=== PATIENT | male | born 1995 | race Asian ===

== ENCOUNTER 2018-01-22 19:50 | Inpatient (IN) | payer OTHER, BC ==
[2018-01-22] MEDS ORDERED: Sodium Chloride 0.9% 1,000 ML IV ONE ×3 (20:15→22:20)
[2018-01-22] MEDS ORDERED: Sodium Chloride 0.9% 2,000 ML ONE (20:17)
--- NOTE | 2018-01-22 20:22 | EDM.PDOC ---
ED HPI GENERAL MEDICAL PROBLEM - General Chief Complaint: Exposure to Heat or Cold Stated Complaint: POSS HEAT EXAUSTION Time Seen by Provider: 01/22/18 19:52 Source of Information: Reports: Patient, Other (Friends and coworkers) History Limitations: Reports: Other (Clinical condition) - History of Present Illness INITIAL COMMENTS - FREE TEXT/NARRATIVE: Patient is a 22-year-old male who was brought into emergency department by friends due to a possible heat exhaustion. The friends and coworkers state that the patient has spent the last 2 or 3 days working 17-20 hours shifts in the heat. 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 He's been drinking some fluids only T though not water at all. Friends and coworkers note that he has been a bit listless on today. He' s been acting confused. He is complaining of headache and he is having trouble with his activities of daily living. He is not going to the bathroom properly and he is much delayed in his responses and they had to carry him out of the restaurant today. He did not pass out however he was extremely weak and unable to bear his own weight. Patient is awake and alert but most of the history comes from the coworkers and friends that he lives with. Patient is able to answer some questions. He says yes to headache dizziness weakness lightheadedness he denies any nausea vomiting chest pain shortness of breath abdominal pain. No new rashes itches or joint pains. Patient denies having a fever. Onset: Gradual Duration: Day(s): (2-3 days) Location: Reports: Other (Generalized, see history of present illness) Quality: Reports: Ache, Dull, Throbbing Severity: Severe Improves with: Reports: None Worsens with: Reports: None Context: Reports: Other (CHPI) Associated Symptoms: Reports: Confusion, Diaphoresis (Friends state he has been sweating a lot however he stopped sweating around noon today), Fever/Chills ( Chills but no fever), Malaise, Weakness. Denies: Nausea/Vomiting, Seizure, Shortness of Breath Headache Pain Score (Numeric/FACES): 8 - Related Data Allergies Allergy/AdvReac Type Severity Reaction Status Date / Time No Known Allergies Allergy Verified 01/22/18 20:06 Home Meds: Home Meds . [No Known Home Meds] 01/22/18 [History] ED ROS GENERAL - Review of Systems Review Of Systems: See Below Constitutional: Reports: Chills, Malaise, Weakness, Fatigue, Diaphoresis. Denies: Fever HEENT: Reports: No Symptoms Respiratory: Reports: No Symptoms Cardiovascular: Reports: Other (Patient reports feeling some shortness of breath ) Endocrine: Reports: Fatigue GI/Abdominal: Reports: No Symptoms. Denies: Abdominal Pain, Black Stool, Diarrhea, Difficulty Swallowing, Nausea, Stool Incontinence, Vomiting : Reports: Other (Decreased urination). Denies: Frequency, Urgency Musculoskeletal: Reports: Muscle Stiffness Skin: Reports: No Symptoms Neurological: Reports: Confusion, Dizziness, Headache, Trouble Speaking, Difficulty Walking, Weakness, Change in Speech Psychiatric: Reports: No Symptoms Hematologic/Lymphatic: Reports: No Symptoms Immunologic: Reports: No Symptoms ED EXAM, GENERAL - Physical Exam Exam: See Below Exam Limited By: No Limitations General Appearance: WD/WN, Lethargic, Mild Distress Eye Exam: Bilateral Eye: EOMI, PERRL Ears: Normal External Exam, Hearing Grossly Normal Ear Exam: Bilateral Ear: Auricle Normal Nose: Normal Inspection, Normal Mucosa, No Blood Throat/Mouth: Normal Inspection, Normal Lips, Normal Teeth, Normal Gums, Normal Oropharynx, Normal Voice, No Airway Compromise Head: Atraumatic, Normocephalic Neck: Normal Inspection, Supple, Non-Tender, Full Range of Motion Respiratory/Chest: No Respiratory Distress, Lungs Clear, Normal Breath Sounds, No Accessory Muscle Use, Chest Non-Tender Cardiovascular: Normal Peripheral Pulses, No Edema, No Gallop, No JVD, No Murmur , No Rub, Tachycardia Peripheral Pulses: 2+: Dorsalis Pedis (L), Dorsalis Pedis (R) GI/Abdominal: Normal Bowel Sounds, Soft, Non-Tender, No Organomegaly, No Distention, No Abnormal Bruit, No Mass Back Exam: Normal Inspection, Other (Weakness) Extremities: Normal Inspection, Normal Range of Motion, Non-Tender, Normal Capillary Refill, No Pedal Edema Neurological: Alert, Oriented, CN II-XII Intact, Confused, Slow to Respond Psychiatric: Normal Affect, Normal Mood Skin Exam: Warm, Dry, Intact, Normal Color, No Rash Course - Vital Signs Last Recorded V/S: Last Vital Signs Temp 98.8 F 01/23/18 18:56 Pulse 92 01/23/18 16:01 Resp 18 01/23/18 16:01 BP 130/73 01/23/18 16:01 Pulse Ox 100 01/23/18 16:01 - Orders/Labs/Meds Orders: Active Orders 24 hr Category Date Time Status Vital Signs [RC] Q4HR Care 01/23/18 01:38 Active Chest 2V [CR] Routine Exams 01/24/18 09:00 Ordered CULTURE BLOOD [BC] Stat Lab 01/23/18 03:14 Received CULTURE BLOOD [BC] Stat Lab 01/23/18 03:23 Received DRUG SCREEN, URINE [URCHEM] Stat Lab 01/22/18 21:24 Ordered MISC TEST Routine Lab 01/23/18 04:16 Ordered STREP PNEUMONIAE ANTIGEN [MREF] Routine Lab 01/23/18 07:56 Ordered UA W/MICROSCOPIC [URIN] Routine Lab 01/23/18 07:56 Ordered UA W/MICROSCOPIC [URIN] Stat Lab 01/22/18 21:24 Ordered Acetaminophen [Tylenol] Med 01/23/18 02:54 Active 650 mg PO Q4H PRN Azithromycin [Zithromax] 500 mg Med 01/23/18 04:30 Active Sodium Chloride 0.9% [Normal Saline] 250 ml IV Q24H Ondansetron [Zofran] Med 01/23/18 02:15 Active 4 mg IVPUSH Q8H PRN Sodium Chloride 0.9% [Normal Saline] 1,000 ml Med 01/23/18 09:00 Active IV ASDIRECTED cefTRIAXone [Rocephin] 2 gm Med 01/23/18 04:00 Active Sodium Chloride 0.9% [Normal Saline] 100 ml IV Q24H Blood Culture x2 Reflex Set [OM.PC] Stat Oth 01/23/18 02:58 Ordered Resuscitation Status Routine Resus Stat 01/23/18 02:49 Ordered Medication Orders Acetaminophen (Tylenol) 650 mg PO Q4H PRN PRN Reason: Pain/Fever Last Admin: 01/23/18 16:05 Dose: 650 mg Admin: 01/23/18 03:02 Dose: 650 mg Ceftriaxone Sodium 2 gm/ (Sodium Chloride) 100 mls @ 100 mls/hr IV Q24H RUBEN Last Admin: 01/23/18 04:44 Dose: 100 mls/hr Azithromycin 500 mg/ Sodium (Chloride) 250 mls @ 250 mls/hr IV Q24H [facility] Last Admin: 01/23/18 05:45 Dose: 250 mls/hr Sodium Chloride (Normal Saline) 1,000 mls @ 200 mls/hr IV ASDIRECTED [facility] Last Admin: 01/23/18 16:06 Dose: 200 mls/hr Infusion: 01/23/18 14:45 Dose: 200 mls/hr Admin: 01/23/18 09:45 Dose: 200 mls/hr Ondansetron HCl (Zofran) 4 mg IVPUSH Q8H PRN PRN Reason: Nausea/Vomiting Labs: Laboratory Tests 01/22/18 01/22/18 01/22/18 Range/Units 20:16 20:16 20:16 WBC 5.80 (4.23-9.07) K/mm3 RBC 5.18 (4.63-6.08) M/mm3 Hgb 15.3 (13.7-17.5) gm/L Hct 44.8 (40.1-51.0) % MCV 86.5 (79.0-92.2) fl MCH 29.5 (25.7-32.2) pg MCHC 34.2 (32.2-35.5) g/dl RDW Std Deviation 41.2 (35.1-43.9) fL Plt Count 114 L (163-337) K/mm3 MPV 10.8 (9.4-12.3) fl Neut % (Auto) 66.2 (34.0-67.9) % Lymph % (Auto) 22.2 (21.8-53.1) % [place] % (Auto) 10.7 (5.3-12.2) % Eos % (Auto) 0 L (0.8-7.0) Baso % (Auto) 0.7 (0.1-1.2) % Neut # (Auto) 3.84 (1.78-5.38) K/mm3 Lymph # (Auto) 1.29 L (1.32-3.57) K/mm3 [place] # (Auto) 0.62 (0.30-0.82) K/mm3 Eos # (Auto) 0.00 L (0.04-0.54) K/mm3 Baso # (Auto) 0.04 (0.01-0.08) K/mm3 Sodium 136 (136-145) mEq/L Potassium 3.3 L (3.5-5.1) mEq/L Chloride 100 (98-107) mEq/L Carbon Dioxide 25 (21-32) mEq/L Anion Gap 14.3 (5-15) BUN 13 (7-18) mg/dL Creatinine 1.5 H (0.7-1.3) mg/dL Est Cr Clr Drug Dosing 61.95 mL/min Estimated GFR (MDRD) 59 (>60) mL/min BUN/Creatinine Ratio 8.7 L (14-18) Glucose 84 (74-106) mg/dL Lactic Acid 2.5 H (0.4-2.0) mmol/L Calcium 8.1 L (8.5-10.1) mg/dL Magnesium (1.8-2.4) mg/dl Total Bilirubin 0.4 (0.2-1.0) mg/dL AST 26 (15-37) U/L ALT 34 (16-63) U/L Alkaline Phosphatase 92 (46-116) U/L Creatine Kinase 165 (39-308) U/L C-Reactive Protein (<1.0) mg/dL Total Protein 7.3 (6.4-8.2) g/dl Albumin 3.7 (3.4-5.0) g/dl Globulin 3.6 gm/dL Albumin/Globulin Ratio 1.0 (1-2) Urine Color (Yellow) Urine Appearance (Clear) Urine pH (5.0-8.0) Ur Specific [place] (1.005-1.030) Urine Protein (Negative) Urine Glucose (UA) (Negative) Urine Ketones (Negative) Urine Occult Blood (Negative) Urine Nitrite (Negative) Urine Bilirubin (Negative) Urine Urobilinogen (0.2-1.0) Ur Leukocyte Esterase (Negative) Urine RBC (0-5) /hpf Urine WBC (0-5) /hpf Ur Epithelial Cells (0-5) /hpf Urine Bacteria (FEW) /hpf Urine Mucus (FEW) /hpf Urine Opiates Screen (NEGATIVE) Ur Buprenorphine Scrn (NEGATIVE) Ur Oxycodone Screen (NEGATIVE) Urine Methadone Screen (NEGATIVE) Ur Propoxyphene Screen (NEGATIVE) Ur Barbiturates Screen (NEGATIVE) Ur Tricyclics Screen (NEGATIVE) Ur Phencyclidine Scrn (NEGATIVE) Ur Amphetamine Screen (NEGATIVE) U Methamphetamines Scrn (NEGATIVE) U Benzodiazepines Scrn (NEGATIVE) U Cocaine Metab Screen (NEGATIVE) U Marijuana (THC) Screen (NEGATIVE) Ethyl Alcohol (0.00) gm% Mycoplasma pneumon IgM (NEGATIVE) 01/22/18 01/22/18 01/22/18 Range/Units 20:16 21:24 21:24 WBC (4.23-9.07) K/mm3 RBC (4.63-6.08) M/mm3 Hgb (13.7-17.5) gm/L Hct (40.1-51.0) % MCV (79.0-92.2) fl MCH (25.7-32.2) pg MCHC (32.2-35.5) g/dl RDW Std Deviation (35.1-43.9) fL Plt Count (163-337) K/mm3 MPV (9.4-12.3) fl Neut % (Auto) (34.0-67.9) % Lymph % (Auto) (21.8-53.1) % [place] % (Auto) (5.3-12.2) % Eos % (Auto) (0.8-7.0) Baso % (Auto) (0.1-1.2) % Neut # (Auto) (1.78-5.38) K/mm3 Lymph # (Auto) (1.32-3.57) K/mm3 [place] # (Auto) (0.30-0.82) K/mm3 Eos # (Auto) (0.04-0.54) K/mm3 Baso # (Auto) (0.01-0.08) K/mm3 Sodium (136-145) mEq/L Potassium (3.5-5.1) mEq/L Chloride (98-107) mEq/L Carbon Dioxide (21-32) mEq/L Anion Gap (5-15) BUN (7-18) mg/dL Creatinine (0.7-1.3) mg/dL Est Cr Clr Drug Dosing mL/min Estimated GFR (MDRD) (>60) mL/min BUN/Creatinine Ratio (14-18) Glucose (74-106) mg/dL Lactic Acid (0.4-2.0) mmol/L Calcium (8.5-10.1) mg/dL Magnesium (1.8-2.4) mg/dl Total Bilirubin (0.2-1.0) mg/dL AST (15-37) U/L ALT (16-63) U/L Alkaline Phosphatase (46-116) U/L Creatine Kinase (39-308) U/L C-Reactive Protein (<1.0) mg/dL Total Protein (6.4-8.2) g/dl Albumin (3.4-5.0) g/dl Globulin gm/dL Albumin/Globulin Ratio (1-2) Urine Color Light yellow (Yellow) Urine Appearance Clear (Clear) Urine pH 6.5 (5.0-8.0) Ur Specific [place] 1.010 (1.005-1.030) Urine Protein Negative (Negative) Urine Glucose (UA) Negative (Negative) Urine Ketones Negative (Negative) Urine Occult Blood Negative (Negative) Urine Nitrite Negative (Negative) Urine Bilirubin Negative (Negative) Urine Urobilinogen 0.2 (0.2-1.0) Ur Leukocyte Esterase Negative (Negative) Urine RBC Not seen (0-5) /hpf Urine WBC Not seen (0-5) /hpf Ur Epithelial Cells 0-5 (0-5) /hpf Urine Bacteria Rare (FEW) /hpf Urine Mucus Not seen (FEW) /hpf Urine Opiates Screen Negative (NEGATIVE) Ur Buprenorphine Scrn Negative (NEGATIVE) Ur Oxycodone Screen Negative (NEGATIVE) Urine Methadone Screen Negative (NEGATIVE) Ur Propoxyphene Screen Negative (NEGATIVE) Ur Barbiturates Screen Negative (NEGATIVE) Ur Tricyclics Screen Negative (NEGATIVE) Ur Phencyclidine Scrn Negative (NEGATIVE) Ur Amphetamine Screen Negative (NEGATIVE) U Methamphetamines Scrn Negative (NEGATIVE) U Benzodiazepines Scrn Negative (NEGATIVE) U Cocaine Metab Screen Negative (NEGATIVE) U Marijuana (THC) Screen Negative (NEGATIVE) Ethyl Alcohol 0.00 (0.00) gm% Mycoplasma pneumon IgM (NEGATIVE) 01/23/18 01/23/18 01/23/18 Range/Units 04:26 04:26 04:26 WBC 4.63 (4.23-9.07) K/mm3 RBC 4.70 (4.63-6.08) M/mm3 Hgb 14.1 (13.7-17.5) gm/L Hct 40.5 (40.1-51.0) % MCV 86.2 (79.0-92.2) fl MCH 30.0 (25.7-32.2) pg MCHC 34.8 (32.2-35.5) g/dl RDW Std Deviation 40.6 (35.1-43.9) fL Plt Count 102 L (163-337) K/mm3 MPV 11.0 (9.4-12.3) fl Neut % (Auto) 60.9 (34.0-67.9) % Lymph % (Auto) 24.6 (21.8-53.1) % [place] % (Auto) 13.4 H (5.3-12.2) % Eos % (Auto) 0 L (0.8-7.0) Baso % (Auto) 0.9 (0.1-1.2) % Neut # (Auto) 2.82 (1.78-5.38) K/mm3 Lymph # (Auto) 1.14 L (1.32-3.57) K/mm3 [place] # (Auto) 0.62 (0.30-0.82) K/mm3 Eos # (Auto) 0.00 L (0.04-0.54) K/mm3 Baso # (Auto) 0.04 (0.01-0.08) K/mm3 Sodium 136 (136-145) mEq/L Potassium 3.8 (3.5-5.1) mEq/L Chloride 105 (98-107) mEq/L Carbon Dioxide 20 L (21-32) mEq/L Anion Gap 14.8 (5-15) BUN 11 (7-18) mg/dL Creatinine 1.2 (0.7-1.3) mg/dL Est Cr Clr Drug Dosing 82.21 mL/min Estimated GFR (MDRD) > 60 (>60) mL/min BUN/Creatinine Ratio 9.2 L (14-18) Glucose 102 (74-106) mg/dL Lactic Acid 0.7 (0.4-2.0) mmol/L Calcium 7.5 L (8.5-10.1) mg/dL Magnesium 1.5 L (1.8-2.4) mg/dl Total Bilirubin (0.2-1.0) mg/dL AST (15-37) U/L ALT (16-63) U/L Alkaline Phosphatase (46-116) U/L Creatine Kinase (39-308) U/L C-Reactive Protein 1.7 H* (<1.0) mg/dL Total Protein (6.4-8.2) g/dl Albumin (3.4-5.0) g/dl Globulin gm/dL Albumin/Globulin Ratio (1-2) Urine Color (Yellow) Urine Appearance (Clear) Urine pH (5.0-8.0) Ur Specific [place] (1.005-1.030) Urine Protein (Negative) Urine Glucose (UA) (Negative) Urine Ketones (Negative) Urine Occult Blood (Negative) Urine Nitrite (Negative) Urine Bilirubin (Negative) Urine Urobilinogen (0.2-1.0) Ur Leukocyte Esterase (Negative) Urine RBC (0-5) /hpf Urine WBC (0-5) /hpf Ur Epithelial Cells (0-5) /hpf Urine Bacteria (FEW) /hpf Urine Mucus (FEW) /hpf Urine Opiates Screen (NEGATIVE) Ur Buprenorphine Scrn (NEGATIVE) Ur Oxycodone Screen (NEGATIVE) Urine Methadone Screen (NEGATIVE) Ur Propoxyphene Screen (NEGATIVE) Ur Barbiturates Screen (NEGATIVE) Ur Tricyclics Screen (NEGATIVE) Ur Phencyclidine Scrn (NEGATIVE) Ur Amphetamine Screen (NEGATIVE) U Methamphetamines Scrn (NEGATIVE) U Benzodiazepines Scrn (NEGATIVE) U Cocaine Metab Screen (NEGATIVE) U Marijuana (THC) Screen (NEGATIVE) Ethyl Alcohol (0.00) gm% Mycoplasma pneumon IgM Positive H (NEGATIVE) 01/23/18 Range/Units 07:56 WBC (4.23-9.07) K/mm3 RBC (4.63-6.08) M/mm3 Hgb (13.7-17.5) gm/L Hct (40.1-51.0) % MCV (79.0-92.2) fl MCH (25.7-32.2) pg MCHC (32.2-35.5) g/dl RDW Std Deviation (35.1-43.9) fL Plt Count (163-337) K/mm3 MPV (9.4-12.3) fl Neut % (Auto) (34.0-67.9) % Lymph % (Auto) (21.8-53.1) % [place] % (Auto) (5.3-12.2) % Eos % (Auto) (0.8-7.0) Baso % (Auto) (0.1-1.2) % Neut # (Auto) (1.78-5.38) K/mm3 Lymph # (Auto) (1.32-3.57) K/mm3 [place] # (Auto) (0.30-0.82) K/mm3 Eos # (Auto) (0.04-0.54) K/mm3 Baso # (Auto) (0.01-0.08) K/mm3 Sodium (136-145) mEq/L Potassium (3.5-5.1) mEq/L Chloride (98-107) mEq/L Carbon Dioxide (21-32) mEq/L Anion Gap (5-15) BUN (7-18) mg/dL Creatinine (0.7-1.3) mg/dL Est Cr Clr Drug Dosing mL/min Estimated GFR (MDRD) (>60) mL/min BUN/Creatinine Ratio (14-18) Glucose (74-106) mg/dL Lactic Acid (0.4-2.0) mmol/L Calcium (8.5-10.1) mg/dL Magnesium (1.8-2.4) mg/dl Total Bilirubin (0.2-1.0) mg/dL AST (15-37) U/L ALT (16-63) U/L Alkaline Phosphatase (46-116) U/L Creatine Kinase (39-308) U/L C-Reactive Protein (<1.0) mg/dL Total Protein (6.4-8.2) g/dl Albumin (3.4-5.0) g/dl Globulin gm/dL Albumin/Globulin Ratio (1-2) Urine Color Yellow (Yellow) Urine Appearance Clear (Clear) Urine pH 6.0 (5.0-8.0) Ur Specific [place] 1.020 (1.005-1.030) Urine Protein Negative (Negative) Urine Glucose (UA) Negative (Negative) Urine Ketones 1+ H (Negative) Urine Occult Blood Negative (Negative) Urine Nitrite Negative (Negative) Urine Bilirubin Negative (Negative) Urine Urobilinogen 0.2 (0.2-1.0) Ur Leukocyte Esterase Negative (Negative) Urine RBC Not seen (0-5) /hpf Urine WBC 0-5 (0-5) /hpf Ur Epithelial Cells Not seen (0-5) /hpf Urine Bacteria Few (FEW) /hpf Urine Mucus Not seen (FEW) /hpf Urine Opiates Screen (NEGATIVE) Ur Buprenorphine Scrn (NEGATIVE) Ur Oxycodone Screen (NEGATIVE) Urine Methadone Screen (NEGATIVE) Ur Propoxyphene Screen (NEGATIVE) Ur Barbiturates Screen (NEGATIVE) Ur Tricyclics Screen (NEGATIVE) Ur Phencyclidine Scrn (NEGATIVE) Ur Amphetamine Screen (NEGATIVE) U Methamphetamines Scrn (NEGATIVE) U Benzodiazepines Scrn (NEGATIVE) U Cocaine Metab Screen (NEGATIVE) U Marijuana (THC) Screen (NEGATIVE) Ethyl Alcohol (0.00) gm% Mycoplasma pneumon IgM (NEGATIVE) Meds: Medications Generic Name Dose Route Start Last Admin Trade Name Freq PRN Reason Stop Dose Admin Acetaminophen 650 mg 01/23/18 02:54 01/23/18 16:05 Tylenol PO 650 mg Q4H PRN Administration Pain/Fever Ceftriaxone Sodium 2 gm/ 100 mls @ 100 mls/hr 01/23/18 04:00 01/23/18 04:44 Sodium Chloride IV 100 mls/hr Q24H RUBEN Administration Azithromycin 500 mg/ Sodium 250 mls @ 250 mls/hr 01/23/18 04:30 01/23/18 05: 45 Chloride IV 250 mls/hr Q24H RUBEN Administration Sodium Chloride 1,000 mls @ 200 mls/hr 01/23/18 09:00 01/23/18 16:06 Normal Saline IV 200 mls/hr ASDIRECTED RUBEN Administration Ondansetron HCl 4 mg 01/23/18 02:15 Zofran IVPUSH Q8H PRN Nausea/Vomiting Discontinued Medications Generic Name Dose Route Start Last Admin Trade Name Freq PRN Reason Stop Dose Admin Acetaminophen 325 mg 01/23/18 02:41 Tylenol PO Q4H PRN Pain/Fever Acetaminophen 650 mg 01/23/18 02:59 Tylenol PO Q4H PRN fever/pain Azithromycin 500 mg 01/23/18 04:15 Zithromax IV Q24H RUBEN Diphenhydramine HCl 50 mg 01/23/18 02:40 01/23/18 02:52 Benadryl IVPUSH 01/23/18 02:41 50 mg ONETIME ONE Administration Sodium Chloride 1,000 mls @ 1,000 mls/hr 01/22/18 20:15 01/22/18 20:22 Normal Saline IV 01/22/18 21:14 1,000 mls/hr ONETIME ONE Administration Sodium Chloride Confirm 01/22/18 20:17 01/22/18 22:00 Normal Saline Administered 01/22/18 20:18 Not Given Dose 2,000 mls @ as directed .ROUTE .STK-MED ONE Sodium Chloride 1,000 mls @ 1,000 mls/hr 01/22/18 21:12 01/22/18 21:16 Normal Saline IV 01/22/18 22:11 1,000 mls/hr ONETIME ONE Administration Sodium Chloride 1,000 mls @ 200 mls/hr 01/22/18 22:20 01/22/18 22:28 Normal Saline IV 01/23/18 03:19 200 mls/hr ONETIME ONE Administration Sodium Chloride 1,000 mls @ 150 mls/hr 01/23/18 02:15 Normal Saline IV ASDIRECTED RUBEN Sodium Chloride 1,000 mls @ 999 mls/hr 01/23/18 04:10 01/23/18 04:43 Normal Saline IV 01/23/18 05:10 999 mls/hr ONETIME ONE Administration Sodium Chloride 3,000 mls @ 450 mls/hr 01/23/18 07:35 Normal Saline IV ASDIRECTED RUBEN Sodium Chloride 2,000 mls @ 300 mls/hr 01/23/18 07:43 Normal Saline IV ASDIRECTED RUBEN Sodium Chloride 2,000 mls @ 999 mls/hr 01/23/18 06:30 01/23/18 08:03 Normal Saline IV 01/23/18 08:30 999 mls/hr ASDIRECTED ONE Administration Magnesium Sulfate 2 gm/ Premix 50 mls @ 25 mls/hr 01/23/18 10:24 01/23/18 10: 54 IV 01/23/18 12:23 25 mls/hr ONETIME ONE Administration Potassium Chloride 40 meq 01/22/18 21:46 01/22/18 21:52 Klor-Con M20 PO 01/22/18 21:47 40 meq ONETIME ONE Administration Departure - Departure Time of Disposition: 01:20 Disposition: DC/Tfer to [facility] Condition: Fair Clinical Impression: Heat exhaustion Qualifiers: Encounter type: initial encounter Qualified Code(s): T67.5XXA - Heat exhaustion , unspecified, initial encounter - Discharge Information *PRESCRIPTION DRUG MONITORING PROGRAM REVIEWED*: Not Applicable *COPY OF PRESCRIPTION DRUG MONITORING REPORT IN PATIENT CHERRY: Not Applicable - My Orders Last 24 Hours: My Active Orders 01/22/18 21:24 DRUG SCREEN, URINE [URCHEM] Stat UA W/MICROSCOPIC [URIN] Stat 01/23/18 01:38 Vital Signs [RC] Q4HR - Assessment/Plan Last 24 Hours: My Active Orders 01/22/18 21:24 DRUG SCREEN, URINE [URCHEM] Stat UA W/MICROSCOPIC [URIN] Stat 01/23/18 01:38 Vital Signs [RC] Q4HR
[2018-01-22] MEDS ORDERED: Potassium Chloride 20 MEQ Tab.ER PO ONE (21:46)
[2018-01-23] MEDS ORDERED: Ondansetron 4 MG/2 ML SDV IVPUSH PRN (02:15)
[2018-01-23] MEDS ORDERED: Sodium Chloride 0.9% 1,000 ML IV SCH (02:15)
[2018-01-23] MEDS ORDERED: diphenhydrAMINE 50 MG/ML SDV IVPUSH ONE (02:40)
[2018-01-23] MEDS ORDERED: Acetaminophen 325 MG Tab PO PRN ×2 (02:41→02:59)
[2018-01-23] MEDS: Acetaminophen 325 MG Tab PO PRN ×2 (03:02→16:05)
[2018-01-23] MEDS ORDERED: Sodium Chloride 0.9% 1,000 ML IV ONE (04:10)
[2018-01-23] MEDS ORDERED: Azithromycin 500 MG AdvVial IV SCH (04:15)
[2018-01-23] MEDS: cefTRIAXone 2 GM in Sodium Chloride 0.9% 100 ML IV SCH (04:44)
[2018-01-23] MEDS: Azithromycin 500 MG in Sodium Chloride 0.9% 250 ML IV SCH (05:45)
--- NOTE | 2018-01-23 07:02 | CR ---
Chest: Portable view of the chest was obtained. Comparison: Prior chest x-ray performed earlier on the same day (12:05 AM). Heart size and mediastinum are normal. Lungs are clear. Bony structures are unremarkable. Impression: 1. Nothing acute is seen on portable chest x-ray. No significant change is seen from previous study. Diagnostic code #1 I agree with preliminary report issued by [facility] ([facility] report finalized on 01/23/18, 6:07 AM Central Time)
--- NOTE | 2018-01-23 07:03 | CR ---
Chest: Two views of the chest were obtained. Comparison: No prior chest x-ray. Heart size and mediastinum are normal. Lungs are clear. Bony structures appear within normal limits. Impression: 1. Nothing acute is seen on two-view chest x-ray. Diagnostic code #1
--- NOTE | 2018-01-23 07:03 | CT ---
Head CT Technique: Multiple axial sections through the brain were obtained. Intravenous contrast was not utilized. Comparison: No prior intracranial imaging. Findings: Ventricles along with basal cisterns and sulci over the convexities are within normal limits for the patient's age. No abnormal parenchymal densities are seen. No evidence of intracranial hemorrhage. No midline shift or mass effect is seen. No discrete calvarial abnormality is seen. Impression: 1. Nothing acute is seen on noncontrast head CT exam. Diagnostic code #1 I agree with preliminary report issued by [facility] ([facility] report finalized on 01/23/18, 1:36 AM)
[2018-01-23] MEDS ORDERED: Sodium Chloride 0.9% 3,000 ML IV SCH (07:35)
[2018-01-23] MEDS ORDERED: Sodium Chloride 0.9% 2,000 ML IV SCH (07:43)
[2018-01-23] MEDS: Sodium Chloride 0.9% 2,000 ML IV ONE ×2 (07:49→08:03)
[2018-01-23] MEDS: Sodium Chloride 0.9% 1,000 ML IV SCH ×2 (09:45→16:06)
[2018-01-23] MEDS ORDERED: Magnesium Sulfate/Water 2 GM in Premix Bag 1 BAG IV ONE (10:24)
--- NOTE | 2018-01-23 15:44 | PCM.HP ---
H&P History of Present Illness - General Date of Service: 01/23/18 Admit Problem/Dx: Admission Diagnosis/Problem Admission Diagnosis/Problem Dizziness Source of Information: Patient, Provider - History of Present Illness Initial Comments - Free Text/Narative: 22 year old male who is from [place], presents with generalized weakness, decrease oral intake and overall fatigue for several days. He apparently also has had a non productive cough over 1-2 weeks. There has not been fever or chills. He has had a headache. There has been a decrease in urination, no apparent change in stool habits. He denies any sick contact or recent travel. Onset of Symptoms: Reports: Sudden Symptom Onset Date: 01/22/18 Duration of Symptoms: Reports: Hour(s):, Getting Worse Location: Reports: Generalized Severity: Moderate Improves with: Reports: Medication Worsens with: Reports: Other Context: Reports: Sick Contact (unknown), Activity/Exercise (decreased) Associated Symptoms: Reports: Confusion, Headaches, Loss of Appetite, Malaise, Nausea/Vomiting, Weakness Headache Pain Score (Numeric/FACES): 8 - Related Data Allergies/Adverse Reactions: Allergies Allergy/AdvReac Type Severity Reaction Status Date / Time No Known Allergies Allergy Verified 01/22/18 20:06 Home Medications: Home Meds . [No Known Home Meds] 01/22/18 [History] Past Medical History Psychiatric History: Reports: ADHD Social & Family History - Family History Family Medical History: Noncontributory - Tobacco Use Smoking Status *Q: Light Tobacco Smoker Years of Tobacco use: 0 Packs/Tins Daily: 0 - Caffeine Use Caffeine Use: Reports: Coffee, Soda - Recreational Drug Use Recreational Drug Use: No H&P Review of Systems - Review of Systems: Review Of Systems: See Below General: Reports: Malaise, Weakness HEENT: Reports: No Symptoms Pulmonary: Reports: Shortness of Breath Cardiovascular: Reports: No Symptoms Gastrointestinal: Reports: No Symptoms Genitourinary: Reports: No Symptoms Musculoskeletal: Reports: No Symptoms Skin: Reports: No Symptoms Psychiatric: Reports: Confusion Neurological: Reports: Confusion, Dizziness, Headache Hematologic/Lymphatic: Reports: No Symptoms Immunologic: Reports: No Symptoms Exam - Exam Exam: See Below - Vital Signs Vital Signs: Last Vital Signs Temp 37.5 C 01/23/18 11:36 Pulse 90 01/23/18 11:36 Resp 16 01/23/18 11:36 BP 110/71 01/23/18 11:36 Pulse Ox 100 01/23/18 11:36 Weight: 60.192 kg - Exam Quality Assessment: DVT Prophylaxis General: Alert, Oriented, Cooperative HEENT: Conjunctiva Clear, EACs Clear, EOMI, Nares Patent, Normal Nasal Septum, Pupils Equal, Pupils Reactive, PERRLA Neck: Trachea Midline Lungs: Clear to Auscultation, Normal Respiratory Effort Cardiovascular: Regular Rate, Regular Rhythm GI/Abdominal Exam: Normal Bowel Sounds, Soft, Non-Tender, No Organomegaly, No Distention (Male) Exam: Deferred Rectal (Males) Exam: Deferred Back Exam: Normal Inspection Extremities: Normal Inspection, Normal Range of Motion, Non-Tender, No Pedal Edema, Normal Capillary Refill Skin: Warm Neurological: Cranial Nerves Intact Neuro Extensive - Mental Status: Alert, Oriented x3, Normal Mood/Affect, Normal Cognition, Memory Intact Neuro Extensive - Motor, Sensory, Reflexes: CN II-XII Intact Psychiatric: Alert, Normal Affect, Normal Mood - Patient Data Lab Results Last 24 hrs: Laboratory Results - last 24 hr 01/22/18 01/22/18 01/22/18 Range/Units 20:16 20:16 20:16 WBC 5.80 (4.23-9.07) K/mm3 RBC 5.18 (4.63-6.08) M/mm3 Hgb 15.3 (13.7-17.5) gm/L Hct 44.8 (40.1-51.0) % MCV 86.5 (79.0-92.2) fl MCH 29.5 (25.7-32.2) pg MCHC 34.2 (32.2-35.5) g/dl RDW Std Deviation 41.2 (35.1-43.9) fL Plt Count 114 L (163-337) K/mm3 MPV 10.8 (9.4-12.3) fl Neut % (Auto) 66.2 (34.0-67.9) % Lymph % (Auto) 22.2 (21.8-53.1) % [place] % (Auto) 10.7 (5.3-12.2) % Eos % (Auto) 0 L (0.8-7.0) Baso % (Auto) 0.7 (0.1-1.2) % Neut # (Auto) 3.84 (1.78-5.38) K/mm3 Lymph # (Auto) 1.29 L (1.32-3.57) K/mm3 [place] # (Auto) 0.62 (0.30-0.82) K/mm3 Eos # (Auto) 0.00 L (0.04-0.54) K/mm3 Baso # (Auto) 0.04 (0.01-0.08) K/mm3 Sodium 136 (136-145) mEq/L Potassium 3.3 L (3.5-5.1) mEq/L Chloride 100 (98-107) mEq/L Carbon Dioxide 25 (21-32) mEq/L Anion Gap 14.3 (5-15) BUN 13 (7-18) mg/dL Creatinine 1.5 H (0.7-1.3) mg/dL Est Cr Clr Drug Dosing 61.95 mL/min Estimated GFR (MDRD) 59 (>60) mL/min BUN/Creatinine Ratio 8.7 L (14-18) Glucose 84 (74-106) mg/dL Lactic Acid 2.5 H (0.4-2.0) mmol/L Calcium 8.1 L (8.5-10.1) mg/dL Magnesium (1.8-2.4) mg/dl Total Bilirubin 0.4 (0.2-1.0) mg/dL AST 26 (15-37) U/L ALT 34 (16-63) U/L Alkaline Phosphatase 92 (46-116) U/L Creatine Kinase 165 (39-308) U/L C-Reactive Protein (<1.0) mg/dL Total Protein 7.3 (6.4-8.2) g/dl Albumin 3.7 (3.4-5.0) g/dl Globulin 3.6 gm/dL Albumin/Globulin Ratio 1.0 (1-2) Urine Color (Yellow) Urine Appearance (Clear) Urine pH (5.0-8.0) Ur Specific [place] (1.005-1.030) Urine Protein (Negative) Urine Glucose (UA) (Negative) Urine Ketones (Negative) Urine Occult Blood (Negative) Urine Nitrite (Negative) Urine Bilirubin (Negative) Urine Urobilinogen (0.2-1.0) Ur Leukocyte Esterase (Negative) Urine RBC (0-5) /hpf Urine WBC (0-5) /hpf Ur Epithelial Cells (0-5) /hpf Urine Bacteria (FEW) /hpf Urine Mucus (FEW) /hpf Urine Opiates Screen (NEGATIVE) Ur Buprenorphine Scrn (NEGATIVE) Ur Oxycodone Screen (NEGATIVE) Urine Methadone Screen (NEGATIVE) Ur Propoxyphene Screen (NEGATIVE) Ur Barbiturates Screen (NEGATIVE) Ur Tricyclics Screen (NEGATIVE) Ur Phencyclidine Scrn (NEGATIVE) Ur Amphetamine Screen (NEGATIVE) U Methamphetamines Scrn (NEGATIVE) U Benzodiazepines Scrn (NEGATIVE) U Cocaine Metab Screen (NEGATIVE) U Marijuana (THC) Screen (NEGATIVE) Ethyl Alcohol (0.00) gm% 01/22/18 01/22/18 01/22/18 Range/Units 20:16 21:24 21:24 WBC (4.23-9.07) K/mm3 RBC (4.63-6.08) M/mm3 Hgb (13.7-17.5) gm/L Hct (40.1-51.0) % MCV (79.0-92.2) fl MCH (25.7-32.2) pg MCHC (32.2-35.5) g/dl RDW Std Deviation (35.1-43.9) fL Plt Count (163-337) K/mm3 MPV (9.4-12.3) fl Neut % (Auto) (34.0-67.9) % Lymph % (Auto) (21.8-53.1) % [place] % (Auto) (5.3-12.2) % Eos % (Auto) (0.8-7.0) Baso % (Auto) (0.1-1.2) % Neut # (Auto) (1.78-5.38) K/mm3 Lymph # (Auto) (1.32-3.57) K/mm3 [place] # (Auto) (0.30-0.82) K/mm3 Eos # (Auto) (0.04-0.54) K/mm3 Baso # (Auto) (0.01-0.08) K/mm3 Sodium (136-145) mEq/L Potassium (3.5-5.1) mEq/L Chloride (98-107) mEq/L Carbon Dioxide (21-32) mEq/L Anion Gap (5-15) BUN (7-18) mg/dL Creatinine (0.7-1.3) mg/dL Est Cr Clr Drug Dosing mL/min Estimated GFR (MDRD) (>60) mL/min BUN/Creatinine Ratio (14-18) Glucose (74-106) mg/dL Lactic Acid (0.4-2.0) mmol/L Calcium (8.5-10.1) mg/dL Magnesium (1.8-2.4) mg/dl Total Bilirubin (0.2-1.0) mg/dL AST (15-37) U/L ALT (16-63) U/L Alkaline Phosphatase (46-116) U/L Creatine Kinase (39-308) U/L C-Reactive Protein (<1.0) mg/dL Total Protein (6.4-8.2) g/dl Albumin (3.4-5.0) g/dl Globulin gm/dL Albumin/Globulin Ratio (1-2) Urine Color Light yellow (Yellow) Urine Appearance Clear (Clear) Urine pH 6.5 (5.0-8.0) Ur Specific [place] 1.010 (1.005-1.030) Urine Protein Negative (Negative) Urine Glucose (UA) Negative (Negative) Urine Ketones Negative (Negative) Urine Occult Blood Negative (Negative) Urine Nitrite Negative (Negative) Urine Bilirubin Negative (Negative) Urine Urobilinogen 0.2 (0.2-1.0) Ur Leukocyte Esterase Negative (Negative) Urine RBC Not seen (0-5) /hpf Urine WBC Not seen (0-5) /hpf Ur Epithelial Cells 0-5 (0-5) /hpf Urine Bacteria Rare (FEW) /hpf Urine Mucus Not seen (FEW) /hpf Urine Opiates Screen Negative (NEGATIVE) Ur Buprenorphine Scrn Negative (NEGATIVE) Ur Oxycodone Screen Negative (NEGATIVE) Urine Methadone Screen Negative (NEGATIVE) Ur Propoxyphene Screen Negative (NEGATIVE) Ur Barbiturates Screen Negative (NEGATIVE) Ur Tricyclics Screen Negative (NEGATIVE) Ur Phencyclidine Scrn Negative (NEGATIVE) Ur Amphetamine Screen Negative (NEGATIVE) U Methamphetamines Scrn Negative (NEGATIVE) U Benzodiazepines Scrn Negative (NEGATIVE) U Cocaine Metab Screen Negative (NEGATIVE) U Marijuana (THC) Screen Negative (NEGATIVE) Ethyl Alcohol 0.00 (0.00) gm% 01/23/18 01/23/18 01/23/18 Range/Units 04:26 04:26 04:26 WBC 4.63 (4.23-9.07) K/mm3 RBC 4.70 (4.63-6.08) M/mm3 Hgb 14.1 (13.7-17.5) gm/L Hct 40.5 (40.1-51.0) % MCV 86.2 (79.0-92.2) fl MCH 30.0 (25.7-32.2) pg MCHC 34.8 (32.2-35.5) g/dl RDW Std Deviation 40.6 (35.1-43.9) fL Plt Count 102 L (163-337) K/mm3 MPV 11.0 (9.4-12.3) fl Neut % (Auto) 60.9 (34.0-67.9) % Lymph % (Auto) 24.6 (21.8-53.1) % [place] % (Auto) 13.4 H (5.3-12.2) % Eos % (Auto) 0 L (0.8-7.0) Baso % (Auto) 0.9 (0.1-1.2) % Neut # (Auto) 2.82 (1.78-5.38) K/mm3 Lymph # (Auto) 1.14 L (1.32-3.57) K/mm3 [place] # (Auto) 0.62 (0.30-0.82) K/mm3 Eos # (Auto) 0.00 L (0.04-0.54) K/mm3 Baso # (Auto) 0.04 (0.01-0.08) K/mm3 Sodium 136 (136-145) mEq/L Potassium 3.8 (3.5-5.1) mEq/L Chloride 105 (98-107) mEq/L Carbon Dioxide 20 L (21-32) mEq/L Anion Gap 14.8 (5-15) BUN 11 (7-18) mg/dL Creatinine 1.2 (0.7-1.3) mg/dL Est Cr Clr Drug Dosing 82.21 mL/min Estimated GFR (MDRD) > 60 (>60) mL/min BUN/Creatinine Ratio 9.2 L (14-18) Glucose 102 (74-106) mg/dL Lactic Acid 0.7 (0.4-2.0) mmol/L Calcium 7.5 L (8.5-10.1) mg/dL Magnesium 1.5 L (1.8-2.4) mg/dl Total Bilirubin (0.2-1.0) mg/dL AST (15-37) U/L ALT (16-63) U/L Alkaline Phosphatase (46-116) U/L Creatine Kinase (39-308) U/L C-Reactive Protein 1.7 H* (<1.0) mg/dL Total Protein (6.4-8.2) g/dl Albumin (3.4-5.0) g/dl Globulin gm/dL Albumin/Globulin Ratio (1-2) Urine Color (Yellow) Urine Appearance (Clear) Urine pH (5.0-8.0) Ur Specific [place] (1.005-1.030) Urine Protein (Negative) Urine Glucose (UA) (Negative) Urine Ketones (Negative) Urine Occult Blood (Negative) Urine Nitrite (Negative) Urine Bilirubin (Negative) Urine Urobilinogen (0.2-1.0) Ur Leukocyte Esterase (Negative) Urine RBC (0-5) /hpf Urine WBC (0-5) /hpf Ur Epithelial Cells (0-5) /hpf Urine Bacteria (FEW) /hpf Urine Mucus (FEW) /hpf Urine Opiates Screen (NEGATIVE) Ur Buprenorphine Scrn (NEGATIVE) Ur Oxycodone Screen (NEGATIVE) Urine Methadone Screen (NEGATIVE) Ur Propoxyphene Screen (NEGATIVE) Ur Barbiturates Screen (NEGATIVE) Ur Tricyclics Screen (NEGATIVE) Ur Phencyclidine Scrn (NEGATIVE) Ur Amphetamine Screen (NEGATIVE) U Methamphetamines Scrn (NEGATIVE) U Benzodiazepines Scrn (NEGATIVE) U Cocaine Metab Screen (NEGATIVE) U Marijuana (THC) Screen (NEGATIVE) Ethyl Alcohol (0.00) gm% 01/23/18 Range/Units 07:56 WBC (4.23-9.07) K/mm3 RBC (4.63-6.08) M/mm3 Hgb (13.7-17.5) gm/L Hct (40.1-51.0) % MCV (79.0-92.2) fl MCH (25.7-32.2) pg MCHC (32.2-35.5) g/dl RDW Std Deviation (35.1-43.9) fL Plt Count (163-337) K/mm3 MPV (9.4-12.3) fl Neut % (Auto) (34.0-67.9) % Lymph % (Auto) (21.8-53.1) % [place] % (Auto) (5.3-12.2) % Eos % (Auto) (0.8-7.0) Baso % (Auto) (0.1-1.2) % Neut # (Auto) (1.78-5.38) K/mm3 Lymph # (Auto) (1.32-3.57) K/mm3 [place] # (Auto) (0.30-0.82) K/mm3 Eos # (Auto) (0.04-0.54) K/mm3 Baso # (Auto) (0.01-0.08) K/mm3 Sodium (136-145) mEq/L Potassium (3.5-5.1) mEq/L Chloride (98-107) mEq/L Carbon Dioxide (21-32) mEq/L Anion Gap (5-15) BUN (7-18) mg/dL Creatinine (0.7-1.3) mg/dL Est Cr Clr Drug Dosing mL/min Estimated GFR (MDRD) (>60) mL/min BUN/Creatinine Ratio (14-18) Glucose (74-106) mg/dL Lactic Acid (0.4-2.0) mmol/L Calcium (8.5-10.1) mg/dL Magnesium (1.8-2.4) mg/dl Total Bilirubin (0.2-1.0) mg/dL AST (15-37) U/L ALT (16-63) U/L Alkaline Phosphatase (46-116) U/L Creatine Kinase (39-308) U/L C-Reactive Protein (<1.0) mg/dL Total Protein (6.4-8.2) g/dl Albumin (3.4-5.0) g/dl Globulin gm/dL Albumin/Globulin Ratio (1-2) Urine Color Yellow (Yellow) Urine Appearance Clear (Clear) Urine pH 6.0 (5.0-8.0) Ur Specific [place] 1.020 (1.005-1.030) Urine Protein Negative (Negative) Urine Glucose (UA) Negative (Negative) Urine Ketones 1+ H (Negative) Urine Occult Blood Negative (Negative) Urine Nitrite Negative (Negative) Urine Bilirubin Negative (Negative) Urine Urobilinogen 0.2 (0.2-1.0) Ur Leukocyte Esterase Negative (Negative) Urine RBC Not seen (0-5) /hpf Urine WBC 0-5 (0-5) /hpf Ur Epithelial Cells Not seen (0-5) /hpf Urine Bacteria Few (FEW) /hpf Urine Mucus Not seen (FEW) /hpf Urine Opiates Screen (NEGATIVE) Ur Buprenorphine Scrn (NEGATIVE) Ur Oxycodone Screen (NEGATIVE) Urine Methadone Screen (NEGATIVE) Ur Propoxyphene Screen (NEGATIVE) Ur Barbiturates Screen (NEGATIVE) Ur Tricyclics Screen (NEGATIVE) Ur Phencyclidine Scrn (NEGATIVE) Ur Amphetamine Screen (NEGATIVE) U Methamphetamines Scrn (NEGATIVE) U Benzodiazepines Scrn (NEGATIVE) U Cocaine Metab Screen (NEGATIVE) U Marijuana (THC) Screen (NEGATIVE) Ethyl Alcohol (0.00) gm% Result Diagrams: 01/23/18 04:26 01/23/18 04:26 - Problem List (1) Orthostatic dizziness SNOMED Code(s): 207934093 ICD Code: R42 - DIZZINESS AND GIDDINESS Status: Acute Current Visit: Yes (2) Malaise and fatigue SNOMED Code(s): 274424644 ICD Code: R53.81 - OTHER MALAISE; R53.83 - OTHER FATIGUE Status: Acute Current Visit: Yes (3) Generalized weakness SNOMED Code(s): 18690043 ICD Code: R53.1 - WEAKNESS Status: Acute Current Visit: Yes Problem List Initiated/Reviewed/Updated: Yes Orders Last 24hrs: Active Orders 24 hr Category Date Time Status Patient Status [ADT] Routine ADT 01/23/18 09:42 Active Vital Signs [RC] Q4HR Care 01/23/18 01:38 Active Full Liquid Diet [DIET] Diet 01/23/18 Lunch Active Chest 2V [CR] Routine Exams 01/24/18 09:00 Ordered BMP [BASIC METABOLIC PANEL,BMP] [CHEM] Routine Lab 01/23/18 04:26 Results CRP [C-REACTIVE PROTEIN] [CHEM] Routine Lab 01/23/18 04:26 Results CULTURE BLOOD [BC] Stat Lab 01/23/18 03:14 Received CULTURE BLOOD [BC] Stat Lab 01/23/18 03:23 Received DRUG SCREEN, URINE [URCHEM] Stat Lab 01/22/18 21:24 Ordered MG [MAGNESIUM] [CHEM] Routine Lab 01/23/18 04:26 Results MISC TEST Routine Lab 01/23/18 04:16 Ordered MYCOPLASMA PNEUMONIAE IGM AB [CHEM] Routine Lab 01/23/18 04:26 Results STREP PNEUMONIAE ANTIGEN [MREF] Routine Lab 01/23/18 07:56 Ordered UA W/MICROSCOPIC [URIN] Routine Lab 01/23/18 07:56 Ordered UA W/MICROSCOPIC [URIN] Stat Lab 01/22/18 21:24 Ordered Acetaminophen [Tylenol] Med 01/23/18 02:54 Active 650 mg PO Q4H PRN Azithromycin [Zithromax] 500 mg Med 01/23/18 04:30 Active Sodium Chloride 0.9% [Normal Saline] 250 ml IV Q24H Ondansetron [Zofran] Med 01/23/18 02:15 Active 4 mg IVPUSH Q8H PRN Sodium Chloride 0.9% [Normal Saline] 1,000 ml Med 01/23/18 09:00 Active IV ASDIRECTED cefTRIAXone [Rocephin] 2 gm Med 01/23/18 04:00 Active Sodium Chloride 0.9% [Normal Saline] 100 ml IV Q24H Blood Culture x2 Reflex Set [OM.PC] Stat Oth 01/23/18 02:58 Ordered Resuscitation Status Routine Resus Stat 01/23/18 02:49 Ordered Medication Orders Acetaminophen (Tylenol) 650 mg PO Q4H PRN PRN Reason: Pain/Fever Last Admin: 01/23/18 03:02 Dose: 650 mg Ceftriaxone Sodium 2 gm/ (Sodium Chloride) 100 mls @ 100 mls/hr IV Q24H [facility] Last Admin: 01/23/18 04:44 Dose: 100 mls/hr Azithromycin 500 mg/ Sodium (Chloride) 250 mls @ 250 mls/hr IV Q24H [facility] Last Admin: 01/23/18 05:45 Dose: 250 mls/hr Sodium Chloride (Normal Saline) 1,000 mls @ 200 mls/hr IV ASDIRECTED [facility] Last Admin: 01/23/18 09:45 Dose: 200 mls/hr Ondansetron HCl (Zofran) 4 mg IVPUSH Q8H PRN PRN Reason: Nausea/Vomiting Assessment/Plan Comment:: Impression: Generalized weakness and malaise Cannot exclude infectious source, elevated lactic acid noted No objective signs of dehydration Doubt heat exhaustion Plan: Infectious work up Droplet precaution IVF per sepsis protocol Empiric Zithro/Rocephin Nebs/O2 as needed DVT/GI prophylaxis Advance to regular diet as tolerated. Change admission status, DC 24-48 hours.
[2018-01-23] MEDS ORDERED: Albuterol/Ipratropium 3.0-0.5 MG/3 ML Neb Soln NEB PRN (20:40)
[2018-01-23] MEDS ORDERED: Temazepam 15 MG Cap PO PRN (20:41)
[2018-01-23] MEDS: guaiFENesin/Dextromethorphan 100-10 MG/5 ML Soln 5 ML Cup PO PRN (22:29)
[2018-01-23] MEDS: Benzocaine/Cetylpyridinium/Menthol Lozenge MUCMEM PRN (22:30)
[2018-01-24] MEDS: Acetaminophen 325 MG Tab PO PRN ×3 (00:52→21:37)
[2018-01-24] MEDS: cefTRIAXone 2 GM in Sodium Chloride 0.9% 100 ML IV SCH (04:43)
[2018-01-24] MEDS: Azithromycin 500 MG in Sodium Chloride 0.9% 250 ML IV SCH (05:54)
[2018-01-24] MEDS: Benzocaine/Cetylpyridinium/Menthol Lozenge MUCMEM PRN (09:24)
--- NOTE | 2018-01-24 09:57 | CR ---
Chest: Two views of the chest were obtained. Comparison: Prior chest x-ray of 01/23/18. Heart size and mediastinum are normal. Lungs are clear. Bony structures are unremarkable. Impression: 1. Nothing acute is seen on two-view chest x-ray. Diagnostic code #1
[2018-01-24] MEDS ORDERED: Magnesium Sulfate/Water 2 GM in Premix Bag 1 BAG IV ONE (12:30)
--- NOTE | 2018-01-24 12:37 | PCM.PN ---
- General Info Date of Service: 01/24/18 Functional Status: Reports: Pain Controlled, Tolerating Diet, Ambulating, Urinating - Review of Systems General: Reports: Weakness, Malaise HEENT: Reports: No Symptoms Pulmonary: Reports: Cough Cardiovascular: Reports: No Symptoms Gastrointestinal: Reports: No Symptoms Genitourinary: Reports: No Symptoms Musculoskeletal: Reports: No Symptoms Skin: Reports: No Symptoms Neurological: Reports: No Symptoms Psychiatric: Reports: No Symptoms - Patient Data Vitals - Most Recent: Last Vital Signs Temp 37.1 C 01/24/18 08:06 Pulse 82 01/24/18 08:06 Resp 18 01/24/18 08:06 BP 106/61 01/24/18 08:06 Pulse Ox 99 01/24/18 08:06 Weight - Most Recent: 60.923 kg I&O - Last 24 Hours: Intake & Output 01/23/18 01/24/18 01/24/18 22:59 06:59 14:59 Intake Total 4690 1448 540 Output Total 700 Balance 3990 1448 540 Lab Results Last 24 Hours: Laboratory Results - last 24 hr 01/23/18 Range/Units 04:26 Mycoplasma pneumon IgM Positive H (NEGATIVE) Evan Results Last 24 Hours: Microbiology 01/23/18 03:23 Aerobic Blood Culture - Preliminary Blood - Venous - Lab Draw NO GROWTH AFTER 1 DAY Anaerobic Blood Culture - Preliminary NO GROWTH AFTER 1 DAY 01/23/18 03:14 Aerobic Blood Culture - Preliminary Blood - Venous NO GROWTH AFTER 1 DAY Anaerobic Blood Culture - Preliminary NO GROWTH AFTER 1 DAY 01/23/18 07:56 Streptococcus pneumoniae Antigen (M - Final Urine Med Orders - Current: Current Medications Acetaminophen (Tylenol) 650 mg PO Q4H PRN PRN Reason: Pain/Fever Last Admin: 01/24/18 00:52 Dose: 650 mg Albuterol/Ipratropium (Duoneb 3.0-0.5 Mg/3 Ml) 3 ml NEB Q6HRRT PRN PRN Reason: Shortness of Breath Azithromycin (Zithromax) 500 mg PO ONETIME ONE Stop: 01/25/18 08:01 Azithromycin (Zithromax) 250 mg PO Q24H [facility] Benzocaine/Menthol (Cepacol Sore Throat) 1 lozenge MUCMEM Q2H PRN PRN Reason: Sore Throat Last Admin: 01/24/18 09:24 Dose: 1 lozenge Guaifenesin/Phenylephrine HCl (Robitussin Dm) 10 ml PO Q4H PRN PRN Reason: Cough Last Admin: 01/23/18 22:29 Dose: 10 ml Magnesium Sulfate 2 gm/ Premix 50 mls @ 25 mls/hr IV ONETIME ONE Stop: 01/24/18 14:29 Ondansetron HCl (Zofran) 4 mg IVPUSH Q8H PRN PRN Reason: Nausea/Vomiting Temazepam (Restoril) 15 mg PO BEDTIME PRN PRN Reason: Sleep Discontinued Medications Acetaminophen (Tylenol) 325 mg PO Q4H PRN PRN Reason: Pain/Fever Acetaminophen (Tylenol) 650 mg PO Q4H PRN PRN Reason: fever/pain Azithromycin (Zithromax) 500 mg IV Q24H [facility] Diphenhydramine HCl (Benadryl) 50 mg IVPUSH ONETIME ONE Stop: 01/23/18 02:41 Last Admin: 01/23/18 02:52 Dose: 50 mg Sodium Chloride (Normal Saline) 1,000 mls @ 1,000 mls/hr IV ONETIME ONE Stop: 01/22/18 21:14 Last Admin: 01/22/18 20:22 Dose: 1,000 mls/hr Sodium Chloride (Normal Saline) Confirm Administered Dose 2,000 mls @ as directed .ROUTE .STK-MED ONE Stop: 01/22/18 20:18 Last Admin: 01/22/18 22:00 Dose: Not Given Sodium Chloride (Normal Saline) 1,000 mls @ 1,000 mls/hr IV ONETIME ONE Stop: 01/22/18 22:11 Last Admin: 01/22/18 21:16 Dose: 1,000 mls/hr Sodium Chloride (Normal Saline) 1,000 mls @ 200 mls/hr IV ONETIME ONE Stop: 01/23/18 03:19 Last Admin: 01/22/18 22:28 Dose: 200 mls/hr Sodium Chloride (Normal Saline) 1,000 mls @ 150 mls/hr IV ASDIRECTED [facility] Sodium Chloride (Normal Saline) 1,000 mls @ 999 mls/hr IV ONETIME ONE Stop: 01/23/18 05:10 Last Admin: 01/23/18 04:43 Dose: 999 mls/hr Ceftriaxone Sodium 2 gm/ (Sodium Chloride) 100 mls @ 100 mls/hr IV Q24H [facility] Last Admin: 01/24/18 04:43 Dose: 100 mls/hr Azithromycin 500 mg/ Sodium (Chloride) 250 mls @ 250 mls/hr IV Q24H [facility] Last Admin: 01/24/18 05:54 Dose: 250 mls/hr Sodium Chloride (Normal Saline) 3,000 mls @ 450 mls/hr IV ASDIRECTED [facility] Sodium Chloride (Normal Saline) 2,000 mls @ 300 mls/hr IV ASDIRECTED [facility] Sodium Chloride (Normal Saline) 2,000 mls @ 999 mls/hr IV ASDIRECTED ONE Stop: 01/23/18 08:30 Last Admin: 01/23/18 08:03 Dose: 999 mls/hr Sodium Chloride (Normal Saline) 1,000 mls @ 200 mls/hr IV ASDIRECTED [facility] Last Admin: 01/23/18 16:06 Dose: 200 mls/hr Magnesium Sulfate 2 gm/ Premix 50 mls @ 25 mls/hr IV ONETIME ONE Stop: 01/23/18 12:23 Last Admin: 01/23/18 10:54 Dose: 25 mls/hr Potassium Chloride (Klor-Con M20) 40 meq PO ONETIME ONE Stop: 01/22/18 21:47 Last Admin: 01/22/18 21:52 Dose: 40 meq - Exam Quality Assessment: Supplemental Oxygen, DVT Prophylaxis General: Alert, Oriented, Cooperative, No Acute Distress HEENT: Pupils Equal, Pupils Reactive, EOMI Neck: Trachea Midline Lungs: Normal Respiratory Effort, Decreased Breath Sounds Cardiovascular: Regular Rate, Regular Rhythm GI/Abdominal Exam: Normal Bowel Sounds, Soft, Non-Tender, No Organomegaly, No Distention (Male) Exam: Deferred Back Exam: Normal Inspection Extremities: Normal Inspection, Non-Tender, Normal Capillary Refill Skin: Warm Neurological: No New Focal Deficit, Normal Gait, Normal Speech Psy/Mental Status: Alert, Normal Affect, Normal Mood - Problem List & Annotations (1) Mycoplasma pneumonia SNOMED Code(s): 92383672 Code(s): J15.7 - PNEUMONIA DUE TO MYCOPLASMA PNEUMONIAE Status: Acute Current Visit: Yes - Problem List Review Problem List Initiated/Reviewed/Updated: Yes - My Orders Last 24 Hours: My Active Orders 01/23/18 20:40 RT Aerosol Therapy [RC] ASDIRECTED Albuterol/Ipratropium [DuoNeb 3.0-0.5 MG/3 ML] 3 ml NEB Q6HRRT PRN 01/23/18 20:41 Temazepam [Restoril] 15 mg PO BEDTIME PRN 01/23/18 22:16 Dextromethorphan/guaiFENesin [Robitussin DM] 10 ml PO Q4H PRN 01/23/18 22:18 Benzocaine/Cetylpyrd/Menthol [Cepacol Sore Throat] 1 lozenge MUCMEM Q2H PRN 01/24/18 00:41 Up ad Jojo [RC] ASDIRECTED 01/24/18 12:30 Magnesium Sulfate/Water [Magnesium Sulfate 2 GM in Water 50 ML] 2 gm Premix Bag 1 bag IV ONETIME 01/25/18 08:00 Azithromycin [Zithromax] 500 mg PO ONETIME ONE 01/26/18 08:00 Azithromycin [Zithromax] 250 mg PO Q24H - Plan Plan:: Impression: Generalized weakness and malaise Mycoplasma PNA positive; elevated lactic acid noted->resolved Plan: Droplet precaution IVF per sepsis protocol Empiric Zithro-->continue/Rocephin-->stopped Nebs/O2 as needed DVT/GI prophylaxis Advance to regular diet as tolerated. Change admission status, DC 24-48 hours.
[2018-01-24] MEDS: guaiFENesin/Dextromethorphan 100-10 MG/5 ML Soln 5 ML Cup PO PRN (13:45)
[2018-01-24] MEDS: Benzonatate 100 MG Cap PO SCH ×2 (14:56→21:37)
[2018-01-25] MEDS ORDERED: Azithromycin 250 MG Tab PO ONE (08:00)
[2018-01-25] MEDS: Benzonatate 100 MG Cap PO SCH (08:35)
[2018-01-25] MEDS: guaiFENesin/Dextromethorphan 100-10 MG/5 ML Soln 5 ML Cup PO PRN (08:35)
--- NOTE | 2018-01-25 10:37 | PCM.DCSUM1 ---
Discharge Summary - Hospital Course Free Text/Narrative:: 22 year old male with mycoplasma PNA received Zithro/Rocephin prior to confirmation. He has been prescribed Z-Pack at [place]. During his hospitalization he had a tentative diagnosis of heat exhaustion, however his presentation appears to be solely from PNA. He has been DCd via a Taxi using a voucher provided by [facility]. Hospitalization was uneventful. He has been instructed on aggressive fluid hydration of at least 4 bottles of water in an eight hour. He may return to work on 01/28/18 without restriction. A follow up appt was suggested for 01/27/[address] Williamson in [place], [place]. HPI Initial Comments: 22 year old male who is from [place], presents with generalized weakness, decrease oral intake and overall fatigue for several days. He apparently also has had a non productive cough over 1-2 weeks. There has not been fever or chills. He has had a headache. There has been a decrease in urination, no apparent change in stool habits. He denies any sick contact or recent travel. Diagnosis: Stroke: No - Discharge Data Discharge Date: 01/25/18 Discharge Disposition: Home, Self-Care 01 Condition: Good - Discharge Diagnosis/Problem(s) (1) Mycoplasma pneumonia SNOMED Code(s): 85045330 ICD Code: J15.7 - PNEUMONIA DUE TO MYCOPLASMA PNEUMONIAE Status: Acute Qualifiers: Laterality: unspecified laterality - Patient Instructions Diet: Regular Diet as Tolerated Activity: As Tolerated Driving: May Drive Today Showering/Bathing: May Shower Notify Provider of: Fever, Increased Pain, Nausea and/or Vomiting - Discharge Plan *PRESCRIPTION DRUG MONITORING PROGRAM REVIEWED*: Not Applicable *COPY OF PRESCRIPTION DRUG MONITORING REPORT IN PATIENT CHERRY: Not Applicable Prescriptions/Med Rec: Acetaminophen [Tylenol] 650 mg PO Q4H PRN #30 tablet PRN Reason: Pain/Fever Azithromycin [Zithromax] 250 mg PO Q24H #6 tablet Benzonatate [Tessalon Perle] 200 mg PO TID PRN #30 capsule PRN Reason: Cough Dextromethorphan/guaiFENesin [Robitussin DM] 10 ml PO Q4H PRN #240 cup PRN Reason: Cough Home Medications: Home Meds Acetaminophen [Tylenol] 650 mg PO Q4H PRN #30 tablet 01/25/18 [Rx] Azithromycin [Zithromax] 250 mg PO Q24H #6 tablet 01/25/18 [Rx] Benzonatate [Tessalon Perle] 200 mg PO TID PRN #30 capsule 01/25/18 [Rx] Dextromethorphan/guaiFENesin [Robitussin DM] 10 ml PO Q4H PRN #240 cup 01/25/18 [Rx] Patient Handouts: Heat Exhaustion Information, Community-Acquired Pneumonia, Adult, [id number] Referrals: Rdody Williamson MD [Ordering Only Provider] - (Very important to follow-up with Dr. Williamson on Saturday. Please explain situation and work obligation with imaging services director. ) - Discharge Summary/Plan Comment DC Time >30 min.: No Discharge Summary/Plan Comment: Impression: Generalized weakness and malaise Mycoplasma PNA positive; elevated lactic acid noted->resolved Plan: Droplet precaution IVF per sepsis protocol Empiric Zithro-->continue/Rocephin-->stopped Nebs/O2 as needed DVT/GI prophylaxis Advance to regular diet as tolerated. Change admission status, DC 24-48 hours. - General Info Date of Service: 01/23/18 Functional Status: Reports: Pain Controlled, Tolerating Diet, Ambulating, Urinating - Review of Systems General: Reports: No Symptoms HEENT: Reports: No Symptoms Pulmonary: Reports: No Symptoms Cardiovascular: Reports: No Symptoms Gastrointestinal: Reports: No Symptoms Genitourinary: Reports: No Symptoms Musculoskeletal: Reports: No Symptoms Skin: Reports: No Symptoms Neurological: Reports: No Symptoms Psychiatric: Reports: No Symptoms - Patient Data Vitals - Most Recent: Last Vital Signs Temp 38.1 C 01/25/18 08:07 Pulse 85 01/25/18 08:07 Resp 14 01/25/18 08:07 BP 113/65 01/25/18 08:07 Pulse Ox 97 01/25/18 08:07 Weight - Most Recent: 58.831 kg I&O - Last 24 hours: Intake & Output 01/24/18 01/25/18 01/25/18 22:59 06:59 14:59 Intake Total 850 650 230 Balance 850 650 230 RYAN Results - Last 24 hrs: Microbiology 01/23/18 03:23 Aerobic Blood Culture - Preliminary Blood - Venous - Lab Draw NO GROWTH AFTER 2 DAYS Anaerobic Blood Culture - Preliminary NO GROWTH AFTER 2 DAYS 01/23/18 03:14 Aerobic Blood Culture - Preliminary Blood - Venous NO GROWTH AFTER 2 DAYS Anaerobic Blood Culture - Preliminary NO GROWTH AFTER 2 DAYS Med Orders - Current: Current Medications Acetaminophen (Tylenol) 650 mg PO Q4H PRN PRN Reason: Pain/Fever Last Admin: 01/24/18 21:37 Dose: 650 mg Albuterol/Ipratropium (Duoneb 3.0-0.5 Mg/3 Ml) 3 ml NEB Q6HRRT PRN PRN Reason: Shortness of Breath Azithromycin (Zithromax) 250 mg PO Q24H RUBEN Benzocaine/Menthol (Cepacol Sore Throat) 1 lozenge MUCMEM Q2H PRN PRN Reason: Sore Throat Last Admin: 01/24/18 09:24 Dose: 1 lozenge Benzonatate (Tessalon Perles) 200 mg PO BID RUBEN Last Admin: 01/25/18 08:35 Dose: 200 mg Guaifenesin/Phenylephrine HCl (Robitussin Dm) 10 ml PO Q4H PRN PRN Reason: Cough Last Admin: 01/25/18 08:35 Dose: 10 ml Ondansetron HCl (Zofran) 4 mg IVPUSH Q8H PRN PRN Reason: Nausea/Vomiting Temazepam (Restoril) 15 mg PO BEDTIME PRN PRN Reason: Sleep Discontinued Medications Acetaminophen (Tylenol) 325 mg PO Q4H PRN PRN Reason: Pain/Fever Acetaminophen (Tylenol) 650 mg PO Q4H PRN PRN Reason: fever/pain Azithromycin (Zithromax) 500 mg IV Q24H [facility] Azithromycin (Zithromax) 500 mg PO ONETIME ONE Stop: 01/25/18 08:01 Last Admin: 01/25/18 08:35 Dose: 500 mg Diphenhydramine HCl (Benadryl) 50 mg IVPUSH ONETIME ONE Stop: 01/23/18 02:41 Last Admin: 01/23/18 02:52 Dose: 50 mg Sodium Chloride (Normal Saline) 1,000 mls @ 1,000 mls/hr IV ONETIME ONE Stop: 01/22/18 21:14 Last Admin: 01/22/18 20:22 Dose: 1,000 mls/hr Sodium Chloride (Normal Saline) Confirm Administered Dose 2,000 mls @ as directed .ROUTE .STK-MED ONE Stop: 01/22/18 20:18 Last Admin: 01/22/18 22:00 Dose: Not Given Sodium Chloride (Normal Saline) 1,000 mls @ 1,000 mls/hr IV ONETIME ONE Stop: 01/22/18 22:11 Last Admin: 01/22/18 21:16 Dose: 1,000 mls/hr Sodium Chloride (Normal Saline) 1,000 mls @ 200 mls/hr IV ONETIME ONE Stop: 01/23/18 03:19 Last Admin: 01/22/18 22:28 Dose: 200 mls/hr Sodium Chloride (Normal Saline) 1,000 mls @ 150 mls/hr IV ASDIRECTED RUBEN Sodium Chloride (Normal Saline) 1,000 mls @ 999 mls/hr IV ONETIME ONE Stop: 01/23/18 05:10 Last Admin: 01/23/18 04:43 Dose: 999 mls/hr Ceftriaxone Sodium 2 gm/ (Sodium Chloride) 100 mls @ 100 mls/hr IV Q24H [facility] Last Admin: 01/24/18 04:43 Dose: 100 mls/hr Azithromycin 500 mg/ Sodium (Chloride) 250 mls @ 250 mls/hr IV Q24H [facility] Last Admin: 01/24/18 05:54 Dose: 250 mls/hr Sodium Chloride (Normal Saline) 3,000 mls @ 450 mls/hr IV ASDIRECTED RUBEN Sodium Chloride (Normal Saline) 2,000 mls @ 300 mls/hr IV ASDIRECTED RUBEN Sodium Chloride (Normal Saline) 2,000 mls @ 999 mls/hr IV ASDIRECTED ONE Stop: 01/23/18 08:30 Last Admin: 01/23/18 08:03 Dose: 999 mls/hr Sodium Chloride (Normal Saline) 1,000 mls @ 200 mls/hr IV ASDIRECTED RUBEN Last Admin: 01/23/18 16:06 Dose: 200 mls/hr Magnesium Sulfate 2 gm/ Premix 50 mls @ 25 mls/hr IV ONETIME ONE Stop: 01/23/18 12:23 Last Admin: 01/23/18 10:54 Dose: 25 mls/hr Magnesium Sulfate 2 gm/ Premix 50 mls @ 25 mls/hr IV ONETIME ONE Stop: 01/24/18 14:29 Last Admin: 01/24/18 13:46 Dose: 25 mls/hr Potassium Chloride (Klor-Con M20) 40 meq PO ONETIME ONE Stop: 01/22/18 21:47 Last Admin: 01/22/18 21:52 Dose: 40 meq - Exam Quality Assessment: Reports: DVT Prophylaxis General: Reports: Alert, Oriented, Cooperative, No Acute Distress HEENT: Reports: Pupils Equal, Pupils Reactive, EOMI Neck: Reports: Supple, Trachea Midline, No JVD Lungs: Reports: Normal Respiratory Effort Cardiovascular: Reports: Regular Rate, Regular Rhythm GI/Abdominal Exam: Normal Bowel Sounds, Soft, Non-Tender, No Organomegaly, No Distention (Male) Exam: Deferred Rectal (Males) Exam: Deferred Back Exam: Reports: Normal Inspection Extremities: Normal Inspection, Normal Range of Motion, Non-Tender, No Pedal Edema, Normal Capillary Refill Skin: Reports: Warm, Dry, Intact Neurological: Reports: No New Focal Deficit, Normal Gait, Normal Speech Psy/Mental Status: Reports: Alert, Normal Affect, Normal Mood
[2018-01-25] MEDS ORDERED: Benzonatate 100 MG Cap PO SCH (15:00)
[2018-01-26] MEDS ORDERED: Azithromycin 250 MG Tab PO SCH (08:00)
== END 2018-01-25 11:21 | disposition home or self-care (01) | DRG 195 ==
LOC: JD.ED 19:50 → JD.MS 01-23 02:04 → OBSVTOIN 01-23 09:42 → JD.MS 01-23 11:13
PROVIDERS: ADMIT Internal Medicine Cardiovascular Disease; ATTEND Internal Medicine Cardiovascular Disease
DX: J15.7 Pneumonia due to Mycoplasma pneumoniae (principal); F90.9 Attention-deficit hyperactivity disorder, unspecified type; F17.200 Nicotine dependence, unspecified, uncomplicated
CPT/HCPCS: 36415; 70450; 70450-26; 71045; 71045-26; 71046; 71046-26; 80048; 80053; 80306; 81001; 82550; 83605; 83735; 85025; 86140; 86738; 87040; 87899; 96360; 96361; 99285-25; A9270-GY; G0480; J0456; J0696; J1200; J3475; J7030; J7040; J7050